=== PATIENT | female | born 1995 | race Caucasian/White ===

== ENCOUNTER → 2017-03-11 | Outpatient (CLI) | payer BC | END | disposition home or self-care (01) | LOC: C.LABSPEC 17:45 | PROVIDERS: ATTEND Nurse Practitioner Family | DX: N39.0 Urinary tract infection, site not specified (principal) ==

== ENCOUNTER → 2017-03-11 | Outpatient (CLI) | payer BC ==
--- NOTE | 2017-03-11 13:51 | DIAGNOSTIC IMAGING REPORT ---
KUB HISTORY: Bilateral flank pain. NEPHROLITHIASIS COMPARISON: KUB 04/11/2015. FINDINGS: The bowel gas pattern is unremarkable. There are no dilated loops of small bowel to suggest an obstruction. There is a punctate stone seen within the upper pole the right kidney. No left renal calculi. No ureteral calculi. No pneumoperitoneum or pneumatosis. IMPRESSION: Right-sided nephrolithiasis. No ureteral calculi. Electronically signed by: Nazario Rajan M.D. 03/11/2017 1:50 PM Dictated Date/Time: 03/11/2017 1:48 PM
--- NOTE | 2017-03-11 16:58 | DIAGNOSTIC IMAGING REPORT ---
(RENAL)RETROPERITON COMP HISTORY: 21 years-old Female N20.0 nephrolithiasis. Bilateral flank pain. Follow-up study. COMPARISON: KUB 03/11/2017, CT 04/28/2014 TECHNIQUE: Multiple real-time sonographic images of the kidneys and urinary bladder were obtained assessing grayscale appearance and color flow FINDINGS: The right kidney measures 10.2 x 4.5 x 4.7 cm. Right-sided kidney stones are again seen, largest of which measures 0.5 cm within the midpole. No hydronephrosis. Cortical medullary differentiation is preserved. Left kidney measures 9.8 x 5.6 x 4.1 cm. Left-sided renal calculi are again seen, largest of which measures 0.2 cm within the superior pole. No hydronephrosis. Cortical medullary differentiation is preserved. Urinary bladder is within normal limits with bilateral ureteral jets documented. IMPRESSION: Bilateral nephrolithiasis without hydronephrosis. The above report was generated using voice recognition software. It may contain grammatical, syntax or spelling errors. Electronically signed by: Ra Hogue M.D. 03/11/2017 4:57 PM Dictated Date/Time: 03/11/2017 4:54 PM
== END | disposition home or self-care (01) ==
LOC: C.RAD 13:28
PROVIDERS: ATTEND Nurse Practitioner Family
DX: N20.0 Calculus of kidney (principal); R10.9 Unspecified abdominal pain